=== PATIENT | male | born 1970 | race Caucasian/White ===

== ENCOUNTER 2017-04-24 15:08 | Emergency (ER) | payer OTHER ==
[~2017-04-24] VITALS: Ht 180.3 cm; Wt 120.9 kg
[~2017-04-24 15:08] MED LIST: OXYC-57 PO
[2017-04-24 15:22] VITALS: TEMP 36.6; Ht 180.3 cm; Wt 120.9 kg
[2017-04-24] MEDS ORDERED: IBUP-103 PO (15:40)
[2017-04-24 16:11] LABS: BASO % 0.6 %; BASO ABS # 0.05 K/uL (0-0.2); COMPLETE YES; EOS % 2.4 %; HEMATOCRIT 49.6 % (42-52); IG% 0.2 %; LYMPH % 18.6 %; LYMPH ABS # 1.68 K/uL (1.2-3.4); MEAN CELL VOLUME 90.3 fL (80-100); MEAN CORPUSCULAR HEMOGLOBIN 30.6 pg (25-34); MEAN CORPUSCULAR HGB CONC 33.9 g/dl (32-36); MEAN PLATELET VOLUME 10.5 fL (7.4-10.4); MONO % 8.4 %; NEUT % 69.8 %; PLATELET COUNT 235 K/uL (130-400); RED BLOOD COUNT 5.49 M/uL (4.7-6.1); WHITE BLOOD COUNT 9.05 K/uL (4.8-10.8)
[2017-04-24 16:27] LABS: C-REACTIVE PROTEIN 0.54 mg/dl (0-0.29); CALCIUM 9.1 mg/dl (8.5-10.1); CREATININE 0.99 mg/dl (0.60-1.40); POTASSIUM 4.2 mmol/L (3.5-5.1); URIC ACID 5.6 mg/dl (2.6-7.2)
[2017-04-24 16:30] LABS: ALB/GLOB RATIO 0.9 (0.9-2)
--- NOTE | 2017-04-24 16:58 | DIAGNOSTIC IMAGING REPORT ---
RIGHT ANKLE MIN 3 VIEWS ROUTINE CLINICAL HISTORY: 47 years-old Male presenting with right ankle pain. TECHNIQUE: Frontal, oblique, and lateral views of the right ankle were obtained. COMPARISON: None. FINDINGS: Plate and screw fixation of the distal fibular metaphysis. Cortical screw through the medial malleolus with chronic deformity likely suggesting prior medial malleolus fracture. No hardware complication. Osseous prominence along the medial aspect of the talus extending to the medial malleolus region may represent an old medial malleolus fracture fragment. The ankle mortise is intact. No acute fracture or malalignment. Soft tissues grossly normal. IMPRESSION: 1. Fixation of the distal fibula and medial malleolus prior injury. No hardware complication. 2. No acute osseous injury. Chronic deformity of the medial malleolus/medial talus. Electronically signed by: Jude Zhang M.D. 04/24/2017 4:56 PM Dictated Date/Time: 04/24/2017 4:53 PM
--- NOTE | 2017-04-24 16:59 | DIAGNOSTIC IMAGING REPORT ---
RIGHT FOOT MIN 3 VIEWS ROUTINE CLINICAL HISTORY: Right foot pain. No known trauma. COMPARISON: None FINDINGS: Tarsometatarsal joints are intact. There is no acute fracture within the right foot. Previous distal right tibial and fibular internal fixations are noted. These are better depicted on the right ankle radiographs. Ossicles along the medial malleolus are chronic. 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 IMPRESSION: 1. No acute fracture or dislocation within the right foot. 2. Previous distal right tibial and fibular internal fixations which are better depicted on the right ankle radiographs. Electronically signed by: Andreas Contreras M.D. 04/24/2017 4:57 PM Dictated Date/Time: 04/24/2017 4:52 PM
[2017-04-24] MEDS ORDERED: KETOROLAC TROMETHAMINE 30 MG/ML VIAL IV STA (17:16)
[2017-04-24 17:22] VITALS: BP 151/84; PULSE 99; O2SAT 98
--- NOTE | 2017-04-24 17:48 | EMERGENCY ROOM VISIT NOTE ---
History First contact with patient: 15:26 Chief Complaint: FOOT PAIN Stated Complaint: FOOT PAIN History of Present Illness The patient is a 47 year old male who presents to the Emergency Room with complaints of Right foot pain. The patient states he has had right foot pain for the last 2 months. He states the pain is the most severe after the first several steps out of bed in the morning. He states that he is on his feet all day at work and he does have pain at the end of the day. He states that occasionally he has redness and swelling. He denies any fevers. He denies any falls or injuries. He does have a history of ankle fracture with surgical repair. He was seen for this in the past and diagnosed clinically with gout. Review of Systems A 10 system review of systems was completed with positives and pertinent negatives listed in the HPI. Past Medical/Surgical History Medical Problems: (1) Alcohol Abuse-Unspec (2) Cannabis Abuse-In Remiss Social History Smoking Status: Current Every Day Smoker Alcohol Use: occasionally Marital Status: Housing Status: lives with family Occupation Status: employed Current/Historical Medications Scheduled PRN Ibuprofen Tab (Advil), 600-800 MG PO Q6H PRN for Pain Allergies Coded Allergies: No Known Allergies (Verified Allergy, Unknown, 05/14/07) Physical Exam Vital Signs Date Time Temp Pulse Resp B/P (MAP) Pulse Ox O2 Delivery O2 Flow Rate FiO2 04/24/17 17:22 99 18 151/84 98 Room Air 04/24/17 15:22 36.6 108 18 162/94 95 Room Air Physical Exam VITALS: Vitals are noted on the nurse's note and reviewed by myself. Vital signs stable. GENERAL: This is a 47-year-old male, in no acute distress, nondiaphoretic, well- developed well-nourished. SKIN: The skin was without rashes, erythema, edema, or bruising. There is no tenting of the skin. Capillary reflex less than 2 seconds. HEAD: Normocephalic atraumatic. EARS: External auditory canals clear, tympanic membranes pearly samuel without erythema or effusion bilaterally. EYES: Pupils equal round and reactive to light and accommodation. Conjunctivae without injection, sclerae without icterus. Extraocular movements intact. NOSE: Patent, turbinates without inflammation or discharge. MOUTH: Mucous membranes moist. Tonsils are not enlarged. Pharynx without erythema or exudate. Uvula midline. Airway patent. NECK: Supple without nuchal rigidity. No JVD. HEART: Regular rate and rhythm without murmurs gallops or rubs. LUNGS: Clear to auscultation bilaterally without wheezes, rales or rhonchi. No retractions or accessory muscle use. MUSCULOSKELETAL: There is mild edema noted over the dorsal aspect of the right foot and over the plantar aspect. There is no erythema, warmth or specific joint tenderness and swelling. There is no deformity or ecchymosis. The patient has full range of motion at the knee, ankle, toes. Remaining extremities are otherwise unremarkable. Strength 5/5 throughout. NEURO: Patient was alert and oriented to person place and time. No focal neurological deficits. Medical Decision & Procedures ER Provider Diagnostic Interpretation: RIGHT ANKLE MIN 3 VIEWS ROUTINE CLINICAL HISTORY: 47 years-old Male presenting with right ankle pain. TECHNIQUE: Frontal, oblique, and lateral views of the right ankle were obtained. COMPARISON: None. FINDINGS: Plate and screw fixation of the distal fibular metaphysis. Cortical screw through the medial malleolus with chronic deformity likely suggesting prior medial malleolus fracture. No hardware complication. Osseous prominence along the medial aspect of the talus extending to the medial malleolus region may represent an old medial malleolus fracture fragment. The ankle mortise is intact. No acute fracture or malalignment. Soft tissues grossly normal. IMPRESSION: 1. Fixation of the distal fibula and medial malleolus prior injury. No hardware complication. 2. No acute osseous injury. Chronic deformity of the medial malleolus/medial talus. [~ rep ct add3]] RIGHT FOOT MIN 3 VIEWS ROUTINE CLINICAL HISTORY: Right foot pain. No known trauma. COMPARISON: None FINDINGS: Tarsometatarsal joints are intact. There is no acute fracture within the right foot. Previous distal right tibial and fibular internal fixations are noted. These are better depicted on the right ankle radiographs. Ossicles along the medial malleolus are chronic. 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 IMPRESSION: 1. No acute fracture or dislocation within the right foot. 2. Previous distal right tibial and fibular internal fixations which are better depicted on the right ankle radiographs. Laboratory Results 04/24/17 16:00 Red Blood Count 5.49, Mean Corpuscular Volume 90.3, Mean Corpuscular Hemoglobin 30.6, Mean Corpuscular Hemoglobin Concent 33.9, Mean Platelet Volume 10.5, Neutrophils (%) (Auto) 69.8, Lymphocytes (%) (Auto) 18.6, Monocytes (%) (Auto) 8.4, Eosinophils (%) (Auto) 2.4, Basophils (%) (Auto) 0.6, Neutrophils # (Auto) 6.32, Lymphocytes # (Auto) 1.68, Monocytes # (Auto) 0.76, Eosinophils # (Auto) 0.22, Basophils # (Auto) 0.05 04/24/17 16:00 Test 04/24/17 16:00 White Blood Count 9.05 K/uL (4.8-10.8) Red Blood Count 5.49 M/uL (4.7-6.1) Hemoglobin 16.8 g/dL (14.0-18.0) Hematocrit 49.6 % (42-52) Mean Corpuscular Volume 90.3 fL (80-100) Mean Corpuscular Hemoglobin 30.6 pg (25-34) Mean Corpuscular Hemoglobin Concent 33.9 g/dl (32-36) Platelet Count 235 K/uL (130-400) Mean Platelet Volume 10.5 fL (7.4-10.4) Neutrophils (%) (Auto) 69.8 % Lymphocytes (%) (Auto) 18.6 % Monocytes (%) (Auto) 8.4 % Eosinophils (%) (Auto) 2.4 % Basophils (%) (Auto) 0.6 % Neutrophils # (Auto) 6.32 K/uL (1.4-6.5) Lymphocytes # (Auto) 1.68 K/uL (1.2-3.4) Monocytes # (Auto) 0.76 K/uL (0.11-0.59) Eosinophils # (Auto) 0.22 K/uL (0-0.5) Basophils # (Auto) 0.05 K/uL (0-0.2) RDW Standard Deviation 44.6 fL (36.4-46.3) RDW Coefficient of Variation 13.5 % (11.5-14.5) Immature Granulocyte % (Auto) 0.2 % Immature Granulocyte # (Auto) 0.02 K/uL (0.00-0.02) Erythrocyte Sedimentation Rate 14 mm/hr (0-14) Anion Gap 6.0 mmol/L (3-11) Est Creatinine Clear Calc Drug Dose 123.3 ml/min Estimated GFR () 105.4 Estimated GFR (Non- 91.0 BUN/Creatinine Ratio 12.0 (10-20) Uric Acid 5.6 mg/dl (2.6-7.2) Calcium Level 9.1 mg/dl (8.5-10.1) Total Bilirubin 0.2 mg/dl (0.2-1) Aspartate Amino Transf (AST/SGOT) 26 U/L (15-37) Alanine Aminotransferase (ALT/SGPT) 39 U/L (12-78) Alkaline Phosphatase 73 U/L (45-117) C-Reactive Protein 0.54 mg/dl (0-0.29) Total Protein 7.8 gm/dl (6.4-8.2) Albumin 3.7 gm/dl (3.4-5.0) Globulin 4.1 gm/dl (2.5-4.0) Albumin/Globulin Ratio 0.9 (0.9-2) Medications Administered Medications (Trade) Dose Ordered Sig/Guillermo Route Start Time Stop Time Status Last Admin Dose Admin Ketorolac Tromethamine (Toradol Inj) 30 mg NOW STAT IV 04/24/17 17:16 04/24/17 17:17 DC 04/24/17 17:22 30 MG ED Course The patient was seen and examined. Previous visits were reviewed. The patient does not have a fever or leukocytosis. Sedimentation rate is not elevated. CRP is very minimally elevated at 0.54. Uric acid is not elevated. X-rays reveal chronic changes but no significant acute finding The patient presents to the emergency department with right foot pain for the last 2 months. The patient's symptoms are suggestive of plantar fasciitis. Gout is also considered. The patient however does not have elevated uric acid and does not have any erythema or warmth. The patient was placed in a postop shoe. He should try anti-inflammatories. He was given 30 mg IV Toradol. [facility] and was encouraged to follow-up with them for further evaluation and management. He should return with any worsening symptoms Medical Decision The differential diagnosis includes gout, cellulitis, plantar fasciitis, muscle strain, sprain, fracture, among others Impression Primary Impression: Right foot pain Departure Information Dispostion Home / Self-Care Condition GOOD Referrals No Doctor, Assigned (PCP) Clarence Nance M.D. Forms HOME CARE DOCUMENTATION FORM, IMPORTANT VISIT INFORMATION, Work Instructions Return To Work: 3 days Patient Instructions [employer], Plantar Fasciitis Additional Instructions Use the postop shoe over the next 3-5 days Motrin 600 mg every 6-8 hours Rest, ice and elevation Follow up with orthopedics for further evaluation, management and additional testing Return with any worsening symptoms
== END 2017-04-24 18:14 | disposition home or self-care (01) ==
LOC: C.EDB 15:09 → C.EDD 18:14
DX: M79.671 Pain in right foot (principal); F17.210 Nicotine dependence, cigarettes, uncomplicated; F10.10 Alcohol abuse, uncomplicated; F12.10 Cannabis abuse, uncomplicated